=== PATIENT | male | born 1990 | race Two or more races ===

== ENCOUNTER → 2025-02-23 | Outpatient (CLI) | payer OTHER, SELFPAY ==
--- NOTE | 2025-02-23 17:05 | XR_ITS ---
Examination: MRI lumbar spine without contrast Date and time of exam: February 23, 2025 1810 hours INDICATIONS: Injury to lower back 2 years ago with persistent back pain Technique: Multiple MRI axial and sagittal sections lumbar spine. Sagittal T2-weighted images, TR 3500, TE 118 T1 weighted transverse sections, TR 688 T8.5, T2-weighted sagittal sections T1 weighted sagittal sections TR 621, TE 30 T2 axial sections, TR 4, 190, TE 84. Findings: Adequate alignment lumbar vertebral bodies on the lateral view No lumbar fracture Normal marrow signal lumbar vertebral bodies Mild disc narrowing L4-L5, L5-S1 Disc desiccation L4-L5, L5-S1 No spondylolisthesis L5-S1 partially extruded 6 mm central lumbar disc bulges displacing both S1 nerve roots L4-L5 4 mm central disc bulge More cephalad levels are unremarkable IMPRESSION: L5-S1 large, 6 mm, partially extruded central lumbar disc bulge displacing both S1 nerve roots L4-L5 4 mm central lumbar disc bulge
== END | disposition home or self-care (01) ==
PROVIDERS: PCP Family Medicine; Referring Provider Family Medicine; Visit Provider Family Medicine
DX: M51.27 Other intervertebral disc displacement, lumbosacral region (principal); M51.360 Other intervertebral disc degeneration, lumbar region with discogenic back pain only
CPT/HCPCS: 72148